=== PATIENT | female | born 1960 | race Hispanic/Latino ===

== ENCOUNTER 2019-01-04 20:07 | Emergency (ER) | payer MEDICARE, MEDICAID ==
[2019-01-04 20:10] VITALS: O2SAT 98
[2019-01-04 21:17] VITALS: BP 122/70; RESP 18; TEMP 98
--- NOTE | 2019-01-04 22:03 | ED PDOC ---
HPI: Psych/Substance Abuse Time Seen by Provider: 01/04/19 20:17 Chief Complaint (Nursing): Alcohol Ingestion Chief Complaint (Provider): Alcohol Ingestion ED Caveat: Intoxicated History Per: Patient, EMS History/Exam Limitations: intoxication Onset/Duration Of Symptoms: Sudden Onset Current Symptoms Are (Timing): Still Present Modifying Factor(s): Alcohol Additional Complaint(s): 58 year old female with pmHx of HCL, arrives to ED via EMS for an evaluation after patient tripped and fell, striking the front of her head on the ground while drinking a yanira at a laundry mat. Hx is limited due to current clinical condition, however, patient denies LOC or other bodily injury. PCP: none provided Past Medical History Reviewed: Nursing Documentation, Vital Signs Vital Signs: Last Vital Signs Temp 98 F 01/04/19 21:16 Pulse 78 01/04/19 21:16 Resp 18 01/04/19 21:16 BP 122/70 01/04/19 21:16 Pulse Ox 98 01/04/19 21:16 - Medical History PMH: Anxiety, Depression, HTN, Hyperlipidemia, Hypothyroidism - Family History Family History: States: Unknown Family Hx - Immunization History Hx Tetanus Toxoid Vaccination: Yes Hx Influenza Vaccination: No Hx Pneumococcal Vaccination: No - Home Medications Home Medications: Ambulatory Orders Medication Instructions Recorded ALPRAZolam [Xanax] 1 mg PO DAILY PRN 12/31/16 Acetaminophen [Tylenol Extra 2 tab PO Q6 #30 tablet 12/31/16 Strength] Ibuprofen [Motrin] 600 mg PO Q6 #30 tab 12/31/16 Levothyroxine [Levoxyl] 1 tab PO DAILY 12/31/16 PARoxetine [Paxil CR] 25 mg PO DAILY 12/31/16 Patient Own Control 1 tab PO HS PRN 12/31/16 Simvastatin 1 tab PO DAILY 12/31/16 Tiotropium [Spiriva] 18 mcg IH DAILY 12/31/16 Valsartan 1 tab PO DAILY 12/31/16 Clindamycin [Cleocin] 300 mg PO Q6 #28 cap 01/09/18 Naproxen [Naprosyn] 1 tab PO BID PRN #20 tab 01/09/18 - Allergies Allergies/Adverse Reactions: Allergies Allergy/AdvReac Type Severity Reaction Status Date / Time Penicillins Allergy SHORTNESS Verified 02/12/17 09:44 OF BREATH Review of Systems ROS Statement: Except As Marked, All Systems Reviewed And Found Negative Musculoskeletal: Negative for: Arm Pain, Leg Pain Neurological: Negative for: Other (LOC) Physical Exam - Reviewed Nursing Documentation Reviewed: Yes Vital Signs Reviewed: Yes - Physical Exam Appears: Positive for: Non-toxic, No Acute Distress Head Exam: Positive for: ATRAUMATIC (no bleed or swelling), NORMAL INSPECTION, NORMOCEPHALIC Skin: Positive for: Normal Color Eye Exam: Positive for: Normal appearance ENT: Positive for: Normal ENT Inspection Neck: Positive for: Normal, Painless ROM, Supple Cardiovascular/Chest: Positive for: Regular Rate, Rhythm Respiratory: Positive for: Normal Breath Sounds. Negative for: Respiratory Distress Gastrointestinal/Abdominal: Positive for: Normal Exam Back: Positive for: Normal Inspection. Negative for: Vertebral Tenderness, Decreased ROM Extremity: Positive for: Normal ROM (upper/lower). Negative for: Deformity (or trauma) Neurologic/Psych: Positive for: Alert, Oriented (x3), Other (slurred speech). Negative for: Motor/Sensory Deficits - ECG O2 Sat by Pulse Oximetry: 98 (RA) Pulse Ox Interpretation: Normal Medical Decision Making Medical Decision Making: Time: 2028 A/P: 58 yea old female with alcohol intoxication and mild head injury. Will require imaging and observation until clinically sober. * CT head * Alcohol/drug screen * Accucheck Time: --Accucheck: 90mg/dL. 1130PM --CT's negative for acute intracranial pathology, CT neck negative for fracture --Patient is awake, alert, steady gait, stable for discharge Scribe Attestation: Documented by An Gonzáles, acting as a scribe for Yris Ramesh MD. Provider Scribe Attestation: All medical record entries made by the Scribe were at my direction and personally dictated by me. I have reviewed the chart and agree that the record accurately reflects my personal performance of the history, physical exam, medical decision making, and the department course for this patient. I have also personally directed, reviewed, and agree with the discharge instructions and disposition. Disposition - Clinical Impression Clinical Impression: Alcohol abuse, Head injury - Disposition Referrals: Alcoholics Anonymous [Outside] Eber Jaimes MD [Family Provider] - Disposition: Routine/Home Disposition Time: 23:29 Condition: GOOD Instructions: Alcohol Use - When Is Drinking a Problem?, Closed Head Injury Forms: [facility] ([place])
[2019-01-04 22:44] LABS: BARBITURATES, UR NEGATIVE (NEGATIVE); BENZODIAZEPINES, UR POSITIVE (NEGATIVE); OPIATES, UR NEGATIVE (NEGATIVE); PHENCYCLIDINE, UR NEGATIVE (NEGATIVE)
[2019-01-05 00:11] VITALS: PULSE 72
--- NOTE | 2019-01-05 08:41 | CT ---
Date of service: 01/04/2019 PROCEDURE: CT HEAD WITHOUT CONTRAST. HISTORY: head injury, intox COMPARISON: None available. TECHNIQUE: Axial computed tomography images were obtained through the head/brain without intravenous contrast. Radiation dose: Total exam DLP = 996.74 mGy-cm. This CT exam was performed using one or more of the following dose reduction techniques: Automated exposure control, adjustment of the mA and/or kV according to patient size, and/or use of iterative reconstruction technique. FINDINGS: HEMORRHAGE: No intracranial hemorrhage. BRAIN: No mass effect or edema. No atrophy or chronic microvascular ischemic changes. VENTRICLES: Unremarkable. No hydrocephalus. CALVARIUM: Unremarkable. PARANASAL SINUSES: Unremarkable as visualized. No significant inflammatory changes. MASTOID AIR CELLS: Unremarkable as visualized. No inflammatory changes. OTHER FINDINGS: None. IMPRESSION: Normal CT of the Head.
--- NOTE | 2019-01-05 08:43 | CT ---
Date of service: 01/04/2019 PROCEDURE: CT Cervical Spine without contrast HISTORY: head injury, intox COMPARISON: None available. TECHNIQUE: Axial computed tomography images were obtained of the cervical spine without the use of intravenous contrast. Coronal and sagittal reformatted images were created and reviewed. Radiation dose: Total exam DLP = 374.44 mGy-cm. This CT exam was performed using one or more of the following dose reduction techniques: Automated exposure control, adjustment of the mA and/or kV according to patient size, and/or use of iterative reconstruction technique. FINDINGS: VERTEBRAE: No fracture. Normal alignment. No destructive bony lesion. DISCS/SPINAL CANAL/NEURAL FORAMINA: Multilevel degenerative disc disease and spondylosis. PARASPINAL SOFT TISSUES: Unremarkable. OTHER FINDINGS: None. IMPRESSION: No fracture.
== END 2019-01-05 00:10 | disposition home or self-care (01) ==
LOC: H.ER 20:07
DX: F10.129 Alcohol abuse with intoxication, unspecified (principal); S09.90XA Unspecified injury of head, initial encounter; W01.0XXA Fall on same level from slipping, tripping and stumbling without subsequent striking against object, initial encounter; Y92.89 Other specified places as the place of occurrence of the external cause; E03.9 Hypothyroidism, unspecified; E78.5 Hyperlipidemia, unspecified; F32.9 Major depressive disorder, single episode, unspecified; F41.9 Anxiety disorder, unspecified; I10 Essential (primary) hypertension; Z88.0 Allergy status to penicillin
CPT/HCPCS: 70450; 72125; 82948; 99281; G0480